=== PATIENT | female | born 1975 | race Caucasian/White ===

== ENCOUNTER 2024-04-16 04:53 | Emergency (ER) | payer OTHER ==
[~2024-04-16] VITALS: Ht 160 cm; Wt 115.5 kg
[~2024-04-16 04:53] MED LIST: ALPR0.5T PO; FLUT250M2 IN; LAMO200T2 PO; LANS30CA57 PO; SERT100T PO
[2024-04-16 05:23] VITALS: BP 141/64; PULSE 88; RESP 18; TEMP 97.8; O2SAT 98
[2024-04-16] MEDS ORDERED: ACE3T PO (05:24)
[2024-04-16] MEDS ORDERED: LIDO5DIS21 TOP (05:24)
[2024-04-16] MEDS ORDERED: CYCL-839 PO (05:24)
[2024-04-16] MEDS ORDERED: IBUP-1455 PO (05:24)
[2024-04-16] MEDS: CYCLOBENZAPRINE HCL 10 MG TAB PO ONE (05:33)
[2024-04-16] MEDS: KETOROLAC TROMETH 60MG/2ML VIAL IM ONE (05:33)
== END 2024-04-16 06:04 | disposition home or self-care (01) ==
LOC: ER 04:53
DX: S39.012A Strain of muscle, fascia and tendon of lower back, initial encounter (principal); E78.5 Hyperlipidemia, unspecified; Z88.0 Allergy status to penicillin; Z88.2 Allergy status to sulfonamides; Z88.6 Allergy status to analgesic agent; Z88.5 Allergy status to narcotic agent; Z79.899 Other long term (current) drug therapy; K21.9 Gastro-esophageal reflux disease without esophagitis; Z90.710 Acquired absence of both cervix and uterus; X50.0XXA Overexertion from strenuous movement or load, initial encounter; Y93.89 Activity, other specified; Y92.89 Other specified places as the place of occurrence of the external cause; Y99.8 Other external cause status
CPT/HCPCS: 96372; 99283; J1885